=== PATIENT | female | born 2000 | race African-American/Black ===

== ENCOUNTER 2023-11-15 10:49 | Emergency (ER) | payer OTHER, SELFPAY ==
[2023-11-15] MEDS ORDERED: Ondansetron ODT 4 MG TAB ONE (11:14)
[2023-11-15] MEDS ORDERED: Famotidine 20 MG TAB ONE (11:14)
== END 2023-11-15 12:16 | disposition home or self-care (01) ==
LOC: MADERS 10:49
DX: O21.9 Vomiting of pregnancy, unspecified (principal); O30.001 Twin pregnancy, unspecified number of placenta and unspecified number of amniotic sacs, first trimester; Z3A.01 Less than 8 weeks gestation of pregnancy
CPT/HCPCS: 99283; Q0162